=== PATIENT | male | born 1960 | race Caucasian/White ===

== ENCOUNTER → 2022-01-31 | Outpatient (CLI) | payer OTHER ==
--- NOTE | 2022-01-31 20:30 | Diagnostic Imaging Report ---
INDICATION: Bilateral knee pain AP, oblique, and sunrise views of the knees are obtained. On the right side, there is no acute fracture. There is prominent medial joint space narrowing with osteophyte formation. There is mild patellofemoral spurring. On the left side, there is prominent medial joint space narrowing with moderate patellofemoral spurring. There is no acute fracture. IMPRESSION: Degenerative findings of both knees as above with no acute appearing bony abnormality. Dictated by: Dictated on workstation # [id number]
== END ==
LOC: ORTHO 10:03
PROVIDERS: ATTEND Orthopaedic Surgery
DX: M17.0 Bilateral primary osteoarthritis of knee (principal)
CPT/HCPCS: 73564; G0463; 99213

== ENCOUNTER → 2022-05-02 | Outpatient (CLI) | payer OTHER | LOC: ORTHO 11:58 | PROVIDERS: ATTEND Orthopaedic Surgery | DX: M17.0 Bilateral primary osteoarthritis of knee (principal) ==

== ENCOUNTER → 2022-06-20 | Outpatient (CLI) | payer OTHER | LOC: ORTHO 15:01 | PROVIDERS: ATTEND Orthopaedic Surgery | DX: M17.0 Bilateral primary osteoarthritis of knee (principal) | CPT/HCPCS: 99213 ==

== ENCOUNTER → 2022-12-05 | Outpatient (CLI) | payer OTHER ==
[2022-12-05 12:01] LABS: BASOPHILS # (AUTO) 0.1 10^3/uL (0.0-0.1); BASOPHILS % (AUTO) 1 % (0-10); EOSINOPHILS # (AUTO) 0.3 10^3/uL (0.0-0.3); EOSINOPHILS % (AUTO) 3 % (0-10); HEMATOCRIT 48 % (40-54); HEMOGLOBIN 15.4 g/dL (13.3-17.7); LYMPHOCYTES # (AUTO) 2.2 10^3/uL (1.0-4.0); LYMPHOCYTES % (AUTO) 23 % (12-44); MEAN CORPUSCULAR HEMOGLOBIN 28 pg (25-34); MEAN CORPUSCULAR HGB CONC 32 g/dL (32-36); MEAN CORPUSCULAR VOLUME 87 fL (80-99); MEAN PLATELET VOLUME 8.7 fL (9.0-12.2); MONOCYTES # (AUTO) 0.8 10^3/uL (0.0-1.0); MONOCYTES % (AUTO) 9 % (0-12); NEUTROPHILS # (AUTO) 6.2 10^3/uL (1.8-7.8); NEUTROPHILS % (AUTO) 64 % (42-75); PLATELET COUNT 281 10^3/uL (130-400); WHITE BLOOD COUNT 9.6 10^3/uL (4.3-11.0)
[2022-12-05 12:17] LABS: POTASSIUM 4.4 MMOL/L (3.6-5.0)
[2022-12-05 12:18] LABS: CALCIUM 9.4 MG/DL (8.5-10.1)
[2022-12-05 12:21] LABS: CLARITY,URINE CLEAR; COLOR,URINE YELLOW; PH,URINE 5.5 (5-9)
[2022-12-05 12:22] LABS: BACTERIA,URINE NEGATIVE /HPF; BILIRUBIN,URINE NEGATIVE (NEGATIVE); GLUCOSE, URINE (UA) NEGATIVE (NEGATIVE); KETONES,URINE NEGATIVE (NEGATIVE); LEUKOCYTE ESTERASE ,URINE NEGATIVE (NEGATIVE); NITRITE,URINE NEGATIVE (NEGATIVE); PROTEIN,URINE NEGATIVE (NEGATIVE)
[2022-12-05 12:23] LABS: CREATININE SERUM 0.99 MG/DL (0.60-1.30)
--- NOTE | 2022-12-05 15:15 | Diagnostic Imaging Report ---
EXAMINATION: Chest 2 view HISTORY: Preoperative exam COMPARISON: None available. FINDINGS: The lungs are clear without edema or pneumonia. No pleural effusion or pneumothorax. Heart size is normal. IMPRESSION: 1. Clear lungs. Dictated by: Dictated on workstation # [id number]
== END ==
LOC: ORTHO 10:53
PROVIDERS: ATTEND Orthopaedic Surgery
DX: Z01.89 Encounter for other specified special examinations (principal)
CPT/HCPCS: 36415; 71046; 80048; 81000; 85025; 99213

== ENCOUNTER → 2022-12-15 | Outpatient (CLI) | payer OTHER ==
[~2022-12-15] MED LIST: HYDR-3820 PO; MELO10CA3 PO
--- NOTE | 2022-12-15 13:13 | Diagnostic Imaging Report ---
Exam: CT right knee without contrast. Date: December 15, 2022. Indication: 62-year-old male, chronic right knee pain. Surgical planning. Comparison: None. Technique: Axial CT images of the knee without contrast were obtained. Coronal and sagittal reformats were obtained and provided. Axial CT images at the level of the hip and ankle were also obtained for measurements of femoral version and tibial torsion and surgical planning. All CT scans use one or more of the following dose optimizing techniques: automated exposure control, MA and/or KvP adjustment based on patient size and exam type or iterative reconstruction. Findings: There is incompletely imaged midfoot arthritis. There is a normal variant os trigonum. There is severe medial, mild lateral, and moderate to severe patellofemoral compartment joint space loss. There is no knee joint effusion. There is no acute fracture. There is no aggressive bone lesion. There is a small slitlike Morrison's cyst. Impression: 1. Severe tricompartmental osteoarthritis of the right knee involving the medial and patellofemoral compartments.. Dictated by: Dictated on workstation # [id number]
== END ==
LOC: RAD 12:05
PROVIDERS: ATTEND Orthopaedic Surgery
DX: M17.0 Bilateral primary osteoarthritis of knee (principal)
CPT/HCPCS: 73700

== ENCOUNTER 2022-12-19 10:39 | Outpatient (CLI) | payer OTHER ==
[~2022-12-19] VITALS: Ht 182.9 cm; Wt 118.2 kg
[2022-12-19] MEDS ORDERED: MELO10CA3 PO (10:43)
[2022-12-19] MEDS ORDERED: HYDR-3820 PO (10:43)
== END 2022-12-19 11:12 | disposition home or self-care (01) ==
LOC: PREOP 10:39
PROVIDERS: ATTEND Orthopaedic Surgery
DX: Z01.818 Encounter for other preprocedural examination (principal)

== ENCOUNTER 2022-12-25 07:53 | Day surgery (SDC) | payer OTHER ==
[2022-12-25] VITALS (10 sets, daily range): BP systolic 106–175; BP diastolic 61–105
[~2022-12-25] VITALS: Ht 182.9 cm; Wt 118.2 kg
[2022-12-25] MEDS ORDERED: ceFAZolin INJECTION 2,000 MG in NS (IVPB) 50 ML 50 ML IV ONE (08:15)
[2022-12-25] MEDS ORDERED: LACTATED RINGERS 1,000 ML 1,000 ML IV PRN (08:15)
[2022-12-25] MEDS ORDERED: fentaNYL INJECTION 100 MCG/2 ML VIAL ONE (08:20)
[2022-12-25] MEDS ORDERED: MIDAZOLAM INJ 2 MG/2 ML VIAL ONE (08:20)
[2022-12-25] MEDS ORDERED: proPOfol INJECTION 200 MG/20 ML VIAL IV ONE (08:20)
[2022-12-25] MEDS ORDERED: LIDOCAINE PF 2% 5 ML VIAL ONE (08:20)
[2022-12-25] MEDS ORDERED: ONDANSETRON INJECTION 4 MG/2 ML (SDV) ONE (08:20)
[2022-12-25] MEDS ORDERED: SEVOFLURANE (ULTANE) 15 ML INHAL SOLN ONE ×3 (08:20→13:14)
[2022-12-25] MEDS ORDERED: ROPIVACAINE 5 MG/ML 30ML VIAL ONE (08:21)
[2022-12-25] MEDS ORDERED: ROCURONIUM 50 MG/5 ML VIAL IV ONE (10:04)
[2022-12-25] MEDS ORDERED: TRANEXAMIC ACID 100 MG/ML 10 ML INJECTION ONE (10:59)
[2022-12-25] MEDS ORDERED: dexAMETHasone INJ 10 MG/ML 1 ML VIAL ONE (11:18)
[2022-12-25] MEDS ORDERED: NEOSTIGMINE 1 MG/1ML 10 ML VIAL ONE (12:35)
[2022-12-25] MEDS ORDERED: GLYCOPYRROLATE INJ 0.2 MG/ML 2 ML VIAL ONE (12:35)
[2022-12-25] MEDS ORDERED: HYDROmorphone INJECTION 2 MG/ML VIAL ONE (13:45)
--- NOTE | 2022-12-25 13:45 | Progress Note-Pre Operative ---
Pre-Operative Progress Note Date of Available H&P: Dec 05, 2022 Date H&P Reviewed: Dec 25, 2022 Time H&P Reviewed: 10:05 History & Physical: H&P Reviewed, Patient Examed, No changes noted Pre-Operative Diagnosis: Right Knee Primary Osteoarthritis JASON WEIR MD Dec 25, 2022 13:45
--- NOTE | 2022-12-25 13:48 | Operative Report - Ortho ---
Operative Report Surgeon (s)/[place] (s) Surgeon JASON WEIR MD [place] n/a Pre-Operative Diagnosis Right Knee Primary Osteoarthritis Post-Operative Diagnosis same Operative Report Date of Procedure: Dec 25, 2022 Name of Procedure Performed: Robotic Assisted Right Total Knee Arthroplasty Description & Findings After obtaining informed consent and marking the patient in the preoperative holding area, the patient did receive IV antibiotics. Patient was taken to the operating room and anesthesia was induced. Surgical timeout was taken. The right lower extremity was prepped and draped in the usual sterile fashion. Incision was made and carried down to fascia. Arthrotomy was performed on the medial side of the patella. Patella was retracted laterally and knee was flexed. Found to have circumferential osteophtye around the distal femur as well as exposed bone in the medial compartment. ACL and anterior horns of the menisci were removed. 3.2 mm pins were placed in the medial femoral condyle for the femoral array and checkpoint was placed next to the pins. 3.2 mm pins were placed in the proximal tibia and checkpoint was placed there as well. Arrays were placed and tightened into position. The femur and tibia were then registered. Osteophytes were removed. The knee was then tensioned with varus and valgus stress in extension and flexion. Measurements were captured and adjustments were made to the preoperative plan to balance the flexion and extension gaps. Robotic arm was brought into position and all femoral cuts as well as the tibial cut were performed. Bone blocks were removed. Arrays and pins were removed. Box cut was performed; lug holes were drilled. Lamina spreader box operator was placed and the remainder of the mensici as well as posterior osteophytes were removed. The knee was trialed with a size 6 femur and a size 6 tibia with a 9 mm poly trial. It was found to come out to full extension and flexed beyond 120 degrees. It was stable to varus and valgus stress throughout its range of motion. This was accepted. Knee was brought out into extension and the patella was prepared for an inset patellar buttion. Osteophytes were removed from around the perimeter of the patella. Patellar trial tracked well through the trochlear groove of the femur. Trial implants were removed. Tibial tray was pinned and punched. The cut bone surfaces were lavaged with pulsatile normal saline. Implants were opened and assembled on the back table. A size 6 press fit tibial component was impacted into place. A size 6 press fit femoral component was impacted into place. Tibial tray was lavaged with saline. A 9 mm thick polyethylene component was locked into placed and the locking mechanism was checked. Knee was brought into extension. Press fit patellar component was clamped into place. Irrisept soak was performed and then, the knee was irrigated with normal saline. The knee was once again trialed; found to come to full extension, flexed beyond 120 degrees, and was stable to varus and valgus stress. Tourniquet was dropped and electrocautery was used for hemostasis. Fascial layer was closed with #2 Stratafix. The subcutaneous layer was closed with 2-0 Vicryl. The skin was closed with 3-0 V-loc. Wound was dressed with steri-strips, xeroform, 4x4s, ABD, webril, and FAUSTINO wrap. Patient tolerated the procedure well and was stable to the recovery room. Anesthesia Type General Estimated Blood Loss 150 mL Specimen(s) collected/removed None JASON WEIR MD Dec 25, 2022 13:48
[2022-12-25] MEDS ORDERED: BISACODYL 5 MG TABLET PO PRN (14:00)
[2022-12-25] MEDS ORDERED: ONDANSETRON INJECTION 4 MG/2 ML (SDV) IV PRN (14:00)
[2022-12-25] MEDS ORDERED: HYDROmorphone INJECTION 2 MG/ML VIAL IV ONE (14:00)
[2022-12-25] MEDS ORDERED: MILK OF MAGNESIA 400 MG/5 ML 30 ML UDC PO PRN (14:00)
[2022-12-25] MEDS ORDERED: ONDANSETRON INJECTION 4 MG/2 ML (SDV) IVP PRN (14:00)
[2022-12-25] MEDS ORDERED: oxyCODONE IMMEDIATE RELEASE 5 MG TABLET PO PRN (14:00)
[2022-12-25] MEDS ORDERED: morphine INJ 10 MG/ML 1ML (SYR OR VIAL) IVP ONE (14:00)
[2022-12-25] MEDS ORDERED: ACETAMINOPHEN 500 MG TABLET PO PRN (14:00)
--- NOTE | 2022-12-25 14:34 | Diagnostic Imaging Report ---
CLINICAL HISTORY: Status post right knee replacement. COMPARISON: 12/15/2022. TECHNIQUE: Two views of the right knee. FINDINGS: Postsurgical changes of right total knee arthroplasty are visualized. No periprosthetic fracture. Alignment is anatomic. IMPRESSION: 1. Expected postsurgical changes of right knee arthroplasty. Dictated by: Dictated on workstation # [id number]
[2022-12-25] MEDS: morphine INJ 4 MG/ML 1 ML (VIAL/SYRINGE) IVP PRN ×2 (15:38→19:42)
[2022-12-25] MEDS: HYDROcodone/ACETAMINOPHEN 10/325 TABLET PO PRN ×2 (15:38→21:17)
[2022-12-25] MEDS: NS IV 1000 ML 1,000 ML IV SCH (15:38)
[2022-12-25] MEDS: ASPIRIN enteric coated 81MG TABLET PO SCH (18:01)
[2022-12-25] MEDS: ceFAZolin INJECTION 2,000 MG in NS (IVPB) 50 ML 50 ML IV SCH (18:02)
[2022-12-25] MEDS: CELECOXIB 100 MG CAPSULE PO SCH (19:42)
[2022-12-25] MEDS: DOCUSATE SODIUM 100 MG CAPSULE PO SCH (19:42)
[2022-12-25] MEDS ORDERED: ceFAZolin INJECTION 2,000 MG in NS (IVPB) 50 ML 50 ML IV SCH (21:00)
[2022-12-26] MEDS: NS IV 1000 ML 1,000 ML IV SCH ×2 (00:48→01:19)
[2022-12-26] MEDS: HYDROcodone/ACETAMINOPHEN 10/325 TABLET PO PRN ×5 (01:19→19:29)
[2022-12-26] MEDS: ceFAZolin INJECTION 2,000 MG in NS (IVPB) 50 ML 50 ML IV SCH (01:22)
[2022-12-26 04:00] VITALS: BP 125/80
[2022-12-26 06:11] LABS: HEMOGLOBIN 12.9 g/dL (13.3-17.7)
[2022-12-26] MEDS: THERAPEUTIC MULTIVITAMIN W/MINERALS TABLET PO SCH (06:17)
[2022-12-26 07:55] VITALS: BP 119/71
[2022-12-26] MEDS: ASPIRIN enteric coated 81MG TABLET PO SCH ×2 (08:15→18:14)
[2022-12-26] MEDS: CELECOXIB 100 MG CAPSULE PO SCH ×2 (08:16→19:29)
[2022-12-26] MEDS: DOCUSATE SODIUM 100 MG CAPSULE PO SCH ×2 (08:16→19:29)
--- NOTE | 2022-12-26 09:42 | Physical Therapy Evaluation ---
PT Evaluation-General Medical Diagnosis Admission Date December 25, 2022 Medical Diagnosis: right knee OA Onset Date: Dec 25, 2022 Therapy Diagnosis Therapy Diagnosis: impaired mobility Precautions Precautions/Isolations: Standard Precautions Referral Physician: Bibi Reason for Referral: Evaluation/Treatment Medical History Current History s/p elective right TKR Reviewed History: Yes Social History Home: Single Level Current Living Status: Spouse Prior Prior Level of Function SCALE: Activities may be completed with or without assistive devices. 4-Lfjqivitzz-jhxxvsk completes the activity by him/herself with no assistance from a helper. 5-Set-up or Clean-up Assistance-helper sets up or cleans up; patient completes activity. [place] assists only prior to or following the activity. 4-Supervision or Touching Assistance-helper provides verbal cues and/or touching/steadying and/or contact guard assistance as patient completes activity. Assistance may be provided throughout the activity or intermittently. 3-Partial/Moderate Assistance-helper does LESS THAN HALF the effort. [place] lifts, holds or supports trunk or limbs, but provides less than half the effort. 2-Substantial/Maximal Assistance-helper does MORE THAN HALF the effort. [place] lifts or holds trunk or limbs and provides more than half the effort. 2-Jukxhdzjb-lbpjao does ALL the effort. Patient does none of the effort to complete the activity. Or, the assistance of 2 or more helpers is required for the patient to complete the activity. If activity was not attempted, code reason: 7-Patient Refused. 9-Not Applicable-not attempted and the patient did not perform the activity before the current illness, exacerbation or injury. 10-Not Attempted due to Environmental Limitations-(lack of equipment, weather restraints, etc.). 88-Not Attempted due to Medical Conditions or Safety Concerns. Bed Mobility: 6 Transfers (B,C,W/C): 6 Gait: 6 Stairs: 6 Indoor Mobility (Ambulation): Independent Stairs: Independent Prior Devices Use: None PT Evaluation-Current Subjective Patient agrees to PT. Pain Numeric Pain Scale: 4 Location: Right Location Body Site: Knee Pain Description: Acute Objective Patient Orientation: Normal For Age ROM/Strength ROM Lower Extremities right knee flexion AROM 80 degrees/5 degrees extension/left LE WFL Strength Lower Extremities right LE 3/5 grossly/left LE 5/5 grossly Integumentary/Posture Bowel Incontinence: No Bladder Incontinence: No Posture slight trunk flexed posture Neuromuscular (Tone, Coordination, Reflexes) grossly intact Sensory Vision: Wears Glasses Hearing: Functional Transfers Lying to Sitting/Side of Bed(Q: 6 Sit to Stand (QC): 4 Chair/Tbc-xo-Qrlco Xfer(QC): 4 Gait Mode of Locomotion: Walk Anticipated Mode of Locomotion: Walk Walk 10 feet (QC): 4 Walk 150 ft (QC): 4 Distance: 200' Gait Assistive Device: FWW Comments/Gait Description slow, antalgic/ reciprocal pattern Balance Sitting Static: Normal Sitting Dynamic: Normal Standing Static: Fair Standing Dynamic: Fair Treatment bilateral LE exercises 15 reps each AP, QS, HS, SLR, LAQ Assessment/Needs Patient will benefit from skilled PT to address functional strength and mobility to improve current LOF to safely return to home with spouse at maximum LOF. Rehab Potential: Fair PT Care Home Goals Care Home Goals PT Care Home Goals Time Frame: Dec 30, 2022 Roll Left & Right (QC): 6 Sit to Lying (QC): 6 Lying-Sitting on Side/Bed(QC): 6 Sit to Stand (QC): 6 Chair/Vbs-xp-Deiqi Xfer(QC): 6 Toilet Transfer (QC): 6 Walk 10 feet (QC): 6 Walk 50ft with 2 Turns (QC): 6 Walk 150 ft (QC): 6 1 Step (curb) (QC): 4 4 Steps (QC): 4 PT Plan Treatment/Plan Treatment Plan: Continue Plan of Care Treatment Plan: Bed Mobility, Education, Functional Activity Yvonne, Functional Strength, Gait, Safety, Therapeutic Exercise, Transfers Treatment Duration: Dec 30, 2022 Frequency: 11 times per week Estimated Hrs Per Day: .5 hour per day Patient and/or Family Agrees t: Yes Time Time In: 730 Time Out: 755 DATE: Dec 26, 2022 Total Billed Treatment Time: 25 Total Billed Treatment 1 visit EVModC 13 min GT 12 min AL MONAE PT Dec 26, 2022 09:42
[2022-12-26] MEDS ORDERED: CHOL200059 PO (10:56)
[2022-12-26] MEDS ORDERED: IBUP-2473 PO (10:56)
[2022-12-26] MEDS ORDERED: MAGN400T39 PO (10:56)
[2022-12-26] MEDS ORDERED: POTA99TA17 PO (10:56)
[2022-12-26] MEDS ORDERED: ACET-2267 PO (10:56)
[2022-12-26] MEDS ORDERED: MELO15TA39 PO (10:56)
[2022-12-26 11:21] VITALS: BP 134/71
--- NOTE | 2022-12-26 11:36 | Progress Note - Ortho ---
Progress Note Subjective Date of Exam 12/26/22 Chief Complaint POD #1 R TKA HPI/Events since last exam doing well, pain tolerable, up in chair this AM Review of Systems - Allergies: Coded Allergies: No Known Drug Allergies (Unverified , 12/19/22) Home Meds Reported Medications Cholecalciferol (Vitamin D3) (Vitamin D3) 50 Mcg (2000 Unit) Tablet, 50 MCG PO 1500, TAB 12/26/22 Magnesium Oxide (Magnesium) 400 Mg Magnesium Tablet, 400 MG PO 1500, TAB 12/26/22 Potassium Gluconate (Potassium Gluconate 595 MG) 595 Mg (99 Mg) Tablet, 99 MG PO 1500, TAB 12/26/22 Ibuprofen (Ibuprofen) 200 Mg Tablet, 600 MG PO Q8H PRN for PAIN-MILD (1-4), TAB 12/26/22 Acetaminophen (Tylenol Extra Strength) 500 Mg Tablet, 1000 MG PO Q8H PRN for PAIN-MILD (1-4), TAB 12/26/22 Meloxicam (Meloxicam) 15 Mg Tablet, 15 MG PO DAILY PRN for PAIN-BREAKTHROUGH, TAB 12/26/22 Hydrocodone/Acetaminophen (Hydrocodone-Acetamin 10-325 mg) 10 Mg-325 Mg Tablet, 1 EACH PO DAILY PRN for PAIN-MODERATE (5-7), TAB 12/19/22 Discontinued Reported Medications Meloxicam, Submicronized (Meloxicam) 10 Mg Capsule, 10 MG PO NEEDED, CAP 12/19/22 Objective Exam R Knee: Dressing C/D/I, +DF of ankle, no s/s of DVT Vital Signs Vital Signs Date Time Temp Pulse Resp B/P (MAP) Pulse Ox O2 Delivery O2 Flow Rate FiO2 12/26/22 11:21 36.5 85 18 134/71 (92) 99 Room Air 12/26/22 08:00 Room Air 12/26/22 07:55 35.8 70 18 119/71 (87) 99 Room Air 12/26/22 04:00 36.8 75 18 125/80 (95) 97 Room Air 12/25/22 23:47 36.5 77 18 112/61 (78) 97 Room Air 12/25/22 21:26 Room Air 12/25/22 20:00 Room Air 12/25/22 19:51 36.0 84 18 149/76 (100) 96 Room Air 12/25/22 16:59 36.1 79 18 148/78 (101) 96 Room Air 12/25/22 14:37 Room Air 12/25/22 14:30 36.2 16 128/74 (92) 94 Room Air 12/25/22 14:20 16 106/75 (85) 95 OxyMask 2.00 12/25/22 14:15 OxyMask 2.00 12/25/22 14:10 17 140/96 (111) 97 OxyMask 4.00 12/25/22 14:00 16 158/100 (119) 97 OxyMask 6.00 12/25/22 14:00 OxyMask 6.00 12/25/22 13:50 18 139/94 (109) 97 OxyMask 6.00 12/25/22 13:45 OxyMask 6.00 12/25/22 13:39 36.1 20 175/105 (128) 97 OxyMask 8.00 12/25/22 13:39 OxyMask 8.00 I & O 12/26/22 07:00 Intake Total 1850 ml Output Total 4535 ml Balance -2685 ml Lab Results Laboratory Tests 12/26/22 05:55: Hemoglobin 12.9L, Hematocrit 39L Microbiology 12/25/22 MRSA Screen - Final, Complete MRSA not isolated Imaging 2 views of the right knee dated 12/25/22 were reviewed from PACS and demonstrated total knee arthroplasty with components in good position Assessment and Plan Assessment Right Knee Osteoarthritis s/p TKA Problem List Right Knee Osteoarthritis s/p TKA Plan PT/OT DVT Prophylaxis Home with therapy tomrrow Final Diagonsis Right Knee Osteoarthritis s/p TKA Level of the visit: Level 3 (global) JASON WEIR MD Dec 26, 2022 11:35
--- NOTE | 2022-12-26 13:33 | Anesthesia-General Post-Op ---
General Patient Condition Mental Status/LOC: Same as Preop Cardiovascular: Satisfactory Nausea/Vomiting: Absent Respiratory: Satisfactory Pain: Controlled Complications: Absent Post Op Complications Complications None Follow Up Care/Instructions Patient Instructions None needed. Anesthesia/Patient Condition Patient Condition Patient is doing well, no complaints, stable vital signs, no apparent adverse anesthesia problems. No complications reported per nursing. SONNY SIFUENTES CRNA Dec 26, 2022 13:33
--- NOTE | 2022-12-26 14:16 | Physical Therapy Daily Note ---
PT Daily Note-Current Subjective Patient is in bed and agrees to PT. Pain Numeric Pain Scale: 5-Moderate Pain Location: Right Location Body Site: Knee Pain Description: Acute Section J - Health Conditions 1. Rarely or not at all 2. Occasionally 3. Frequently 4. Almost constantly 8. Unable to answer Pain Effect on Sleep: 1 Pain Interference with Therapy: 1 Pain Interference w/Day-to-Day: 1 Mental Status Patient Orientation: Normal For Age Transfers SCALE: Activities may be completed with or without assistive devices. 2-Bosfnieymk-lqrzcsl completes the activity by him/herself with no assistance from a helper. 5-Set-up or Clean-up Assistance-helper sets up or cleans up; patient completes activity. [place] assists only prior to or following the activity. 4-Supervision or Touching Assistance-helper provides verbal cues and/or touching/steadying and/or contact guard assistance as patient completes activity. Assistance may be provided throughout the activity or intermittently. 3-Partial/Moderate Assistance-helper does LESS THAN HALF the effort. [place] lifts, holds or supports trunk or limbs, but provides less than half the effort. 2-Substantial/Maximal Assistance-helper does MORE THAN HALF the effort. [place] lifts or holds trunk or limbs and provides more than half the effort. 7-Nreowshpt-ygdsky does ALL the effort. Patient does none of the effort to complete the activity. Or, the assistance of 2 or more helpers is required for the patient to complete the activity. If activity was not attempted, code reason: 7-Patient Refused. 9-Not Applicable-not attempted and the patient did not perform the activity before the current illness, exacerbation or injury. 10-Not Attempted due to Environmental Limitations-(lack of equipment, weather restraints, etc.). 88-Not Attempted due to Medical Conditions or Safety Concerns. Sit to Lying (QC): 6 Lying to Sitting/Side of Bed(Q: 6 Sit to Stand (QC): 6 Chair/Xhl-uo-Utjsl Xfer(QC): 6 Toilet Transfer (QC): 6 Gait Training Distance: 275' Walk 10 feet (QC): 5 Walk 50 ft with 2 Turns(QC): 5 Walk 150 ft (QC): 5 Gait Assistive Device: FWW steady improved gait sequence this p.m./reciprocal pattern Exercises Supine Ex: Ankle pumps, Quad Set, Heel Slides, Straight leg raise Supine Reps: 15 Assessment Patient progressing with treatment plan and has been instructed to be up ad [place] in room and hallway. Patient AROM right knee flexion in supine 80 degrees. Plan dismissal tomorrow after PT. PT History Department Chair Goals Mcfp Goals PT Mcfp Goals Time Frame: Dec 30, 2022 Roll Left & Right (QC): 6 Sit to Lying (QC): 6 Lying-Sitting on Side/Bed(QC): 6 Sit to Stand (QC): 6 Chair/Rqt-zk-Kfkar Xfer(QC): 6 Toilet Transfer (QC): 6 Walk 10 feet (QC): 6 Walk 50ft with 2 Turns (QC): 6 Walk 150 ft (QC): 6 1 Step (curb) (QC): 4 4 Steps (QC): 4 PT Plan Treatment/Plan Treatment Plan: Continue Plan of Care Treatment Plan: Bed Mobility, Education, Functional Activity Yvonne, Functional Strength, Gait, Safety, Therapeutic Exercise, Transfers Treatment Duration: Dec 30, 2022 Frequency: 11 times per week Estimated Hrs Per Day: .5 hour per day Patient and/or Family Agrees t: Yes Time Time In: 1335 Time Out: 1400 DATE: Dec 26, 2022 Total Billed Treatment Time: 25 Total Billed Treatment 1 visit EX 15 min GT 10 min AL MONAE PT Dec 26, 2022 14:16
[2022-12-26 16:23] VITALS: BP 107/65
[2022-12-26 19:57] VITALS: BP 131/49
[2022-12-27] VITALS: BP 116/69
[2022-12-27] MEDS: HYDROcodone/ACETAMINOPHEN 10/325 TABLET PO PRN ×2 (02:47→07:25)
[2022-12-27 04:00] VITALS: BP 110/59
[2022-12-27] MEDS: THERAPEUTIC MULTIVITAMIN W/MINERALS TABLET PO SCH (06:06)
[2022-12-27 07:08] LABS: HEMOGLOBIN 12.1 g/dL (13.3-17.7)
[2022-12-27] MEDS: ASPIRIN enteric coated 81MG TABLET PO SCH (07:20)
[2022-12-27] MEDS: DOCUSATE SODIUM 100 MG CAPSULE PO SCH (07:20)
[2022-12-27] MEDS: CELECOXIB 100 MG CAPSULE PO SCH (07:20)
[2022-12-27 08:20] VITALS: BP 99/61
[2022-12-27] MEDS ORDERED: ASPI-1238 PO (09:08)
[2022-12-27] MEDS ORDERED: ACHYD1T PO (09:08)
--- NOTE | 2022-12-27 09:12 | Discharge Summary ---
Discharge Summary Hospital Course Hospital Course Date of Admission: 12/25/22 Admission Diagnosis : Right Knee Primary Osteoarthritis Family Physician/Provider: Sammy Avila Date of Discharge: 12/27/22 Discharge Diagnosis: [ Right Knee Primary Osteoarthritis s/p TKA] Hospital Course: [ On 12/27/22, patient underwent right total knee arthroplasty. Tolerated the procedure well and was transferred to the regular floor. On the day of surgery, began mechanical DVT prophylaxis and started to work with therapy. On POD #1, made good progress with therapy and began chemical DVT prophylaxis. On POD #2, continued to make progress with therapy and outpatient therapy arrangements were made. Patient was ready for discharge home.] Labs and Pending Lab Test: Laboratory Tests 12/27/22 07:00: Hemoglobin 12.1L, Hematocrit 37L Microbiology 12/25/22 MRSA Screen - Final, Complete MRSA not isolated Home Meds Active Aspirin EC (Aspirin) 81 Mg Tablet. 81 Mg PO BID WITH MEALS 14 Days Reported Vitamin D3 (Cholecalciferol (Vitamin D3)) 50 Mcg (2000 Unit) Tablet 50 Mcg PO 15 00 Magnesium (Magnesium Oxide) 400 Mg Magnesium Tablet 400 Mg PO 1500 Potassium Gluconate 595 MG (Potassium Gluconate) 595 Mg (99 Mg) Tablet 99 Mg PO 1500 Ibuprofen 200 Mg Tablet 600 Mg PO Q8H PRN Tylenol Extra Strength (Acetaminophen) 500 Mg Tablet 1,000 Mg PO Q8H PRN Meloxicam 15 Mg Tablet 15 Mg PO DAILY PRN Hydrocodone-Acetamin 10-325 mg (Hydrocodone/Acetaminophen) 10 Mg-325 Mg Tablet 1 Each PO DAILY PRN Assessment/Pt Instructions WBAT on right leg; use walker for assist. Dry dressing daily to incision site; do not get incision wet. Outpatient therapy for motion/strengthening/gait training. F/U with Dr. Henri Mtz ~2 weeks after surgery. Discharge Physical Examination Vital Signs Vital Signs Date Time Temp Pulse Resp B/P (MAP) Pulse Ox O2 Delivery O2 Flow Rate FiO2 12/27/22 08:20 36.6 75 18 99/61 (74) 95 Room Air 12/25/22 14:20 2.00 Extremity: Other (R Knee: Incision C/D/I, +DF of ankle, no s/s of DVT) Allergies: Coded Allergies: No Known Drug Allergies (Unverified , 12/19/22) Discharge Summary Date of Admission Date of Discharge HENRI MTZ MD Dec 27, 2022 09:12
[2022-12-27 09:50] VITALS: BP 99/61
--- NOTE | 2022-12-27 10:03 | Physical Therapy Daily Note ---
PT Daily Note-Current Subjective Patient lying supine in bed upon PT arrival, agreeable to treatment. Patient rates pain at 3/10 currently in right knee. Pain Section J - Health Conditions 1. Rarely or not at all 2. Occasionally 3. Frequently 4. Almost constantly 8. Unable to answer Pain Effect on Sleep: 1 Pain Interference with Therapy: 1 Pain Interference w/Day-to-Day: 1 Mental Status Patient Orientation: Person, Place, Time, Situation Transfers SCALE: Activities may be completed with or without assistive devices. 3-Oifiprmqob-mgagmej completes the activity by him/herself with no assistance from a helper. 5-Set-up or Clean-up Assistance-helper sets up or cleans up; patient completes activity. [place] assists only prior to or following the activity. 4-Supervision or Touching Assistance-helper provides verbal cues and/or touching/steadying and/or contact guard assistance as patient completes activity. Assistance may be provided throughout the activity or intermittently. 3-Partial/Moderate Assistance-helper does LESS THAN HALF the effort. [place] lifts, holds or supports trunk or limbs, but provides less than half the effort. 2-Substantial/Maximal Assistance-helper does MORE THAN HALF the effort. [place] lifts or holds trunk or limbs and provides more than half the effort. 7-Pkrbnsejl-roxdrl does ALL the effort. Patient does none of the effort to complete the activity. Or, the assistance of 2 or more helpers is required for the patient to complete the activity. If activity was not attempted, code reason: 7-Patient Refused. 9-Not Applicable-not attempted and the patient did not perform the activity before the current illness, exacerbation or injury. 10-Not Attempted due to Environmental Limitations-(lack of equipment, weather restraints, etc.). 88-Not Attempted due to Medical Conditions or Safety Concerns. Roll Left & Right (QC): 4 Sit to Lying (QC): 4 Lying to Sitting/Side of Bed(Q: 4 Sit to Stand (QC): 4 Chair/Kgw-lb-Pkixi Xfer(QC): 4 Gait Training Does the Patient Walk?: Yes Distance: 250' Walk 10 feet (QC): 4 Walk 50 ft with 2 Turns(QC): 4 Walk 150 ft (QC): 4 Gait Assistive Device: FWW Stair Training Stair Training: Handrails/: 1 handrail, uses walker #of Steps: 3 1 Step (curb) (QC): 4 4 Steps (QC): 4 Stairs: Pattern: Step to Assessment Current Status: Good Progress Patient tolerated treatment well. He performs all bed mobility and transfers with SBA. Patient ambulates 250 feet with FWW, with SBA and verbal cues. Patient ascends/descends 3 steps with FWW and 1 handrail with maintaining support on the FWW. Patient in chair post treatment with all needs met, nursing notified, call light in reach and in the room. PT Cook Pressure Goals Cook Pressure Goals PT Assisted Goals Time Frame: Dec 30, 2022 Roll Left & Right (QC): 6 Sit to Lying (QC): 6 Lying-Sitting on Side/Bed(QC): 6 Sit to Stand (QC): 6 Chair/Twg-lg-Evovb Xfer(QC): 6 Toilet Transfer (QC): 6 Walk 10 feet (QC): 6 Walk 50ft with 2 Turns (QC): 6 Walk 150 ft (QC): 6 1 Step (curb) (QC): 4 4 Steps (QC): 4 PT Plan Problem List Problem List: Activity Tolerance, Functional Strength, Safety, Balance, Gait, Transfer, Bed Mobility, ROM Treatment/Plan Treatment Plan: Continue Plan of Care Treatment Plan: Bed Mobility, Education, Functional Activity Yvonne, Functional Strength, Gait, Safety, Therapeutic Exercise, Transfers Treatment Duration: Dec 30, 2022 Frequency: 11 times per week Estimated Hrs Per Day: .5 hour per day Patient and/or Family Agrees t: Yes Safety Risks/Education Patient Education: Gait Training, Transfer Techniques, Steps Teaching Recipient: Patient, Family Teaching Methods: Demonstration, Discussion Response to Teaching: Verbalize Understanding, Return Demonstration Time Time In: 934 Time Out: 952 DATE: Dec 27, 2022 Total Billed Treatment Time: 18 Total Billed Treatment Visit, GT ALBERTO WHITE PT Dec 27, 2022 10:03
== END 2022-12-27 11:20 | disposition home or self-care (01) ==
LOC: SDC 07:53 → 4TH 14:51 → SDC 12-27 11:20
PROVIDERS: ATTEND Orthopaedic Surgery
DX: M17.0 Bilateral primary osteoarthritis of knee (principal); F17.210 Nicotine dependence, cigarettes, uncomplicated
CPT/HCPCS: 27447; 73560; 85014; 85018; 87081; 93005; 94664; 97110; 97116 ×2; 97162; C1713 ×2; C1776 ×4; 36415

== ENCOUNTER → 2023-01-09 | Outpatient (CLI) | payer OTHER ==
[~2023-01-09] MED LIST changes: +ACET-2267 PO; +ACHYD1T PO; +ASPI-1238 PO; +CHOL200059 PO; +IBUP-2473 PO; +MAGN400T39 PO; +MELO15TA39 PO; +POTA99TA17 PO
== END ==
LOC: ORTHO 09:56
PROVIDERS: ATTEND Orthopaedic Surgery
DX: Z47.89 Encounter for other orthopedic aftercare (principal)

== ENCOUNTER → 2023-02-08 | Outpatient (CLI) | payer OTHER ==
--- NOTE | 2023-02-08 11:45 | Diagnostic Imaging Report ---
INDICATION: POSTOPERATIVE VISIT, FOLLOW UP EXAM COMPARISON: 12/25/2022 FINDINGS: Two views of the right knee were obtained. Expected postoperative changes are seen from 2 views right knee total arthroplasty. Femoral and tibial components appear well-seated. There is no evidence of periprosthetic fracture. Large joint effusion is noted. No unexpected radiopaque foreign bodies are identified. IMPRESSION: Expected postsurgical changes from right knee total arthroplasty, as described above. No evidence of hardware compromise Dictated by: Dictated on workstation # [id number]
== END ==
LOC: ORTHO 09:04
PROVIDERS: ATTEND Orthopaedic Surgery
DX: Z09 Encounter for follow-up examination after completed treatment for conditions other than malignant neoplasm (principal); Z96.651 Presence of right artificial knee joint
CPT/HCPCS: 73560